=== PATIENT | male | born 1985 | race Two or more races ===

== ENCOUNTER 2024-12-08 23:09 | Emergency (ER) | payer OTHER, SELFPAY ==
[2024-12-08 23:14] VITALS: BP 136/79; PULSE 109; TEMP 36.8; O2SAT 98; BMI 64.6
--- NOTE | 2024-12-08 23:32 | ED_ITS ---
HPI - Abdominal Pain General Chief Complaint: Abdominal Pain Stated Complaint: Abdominal Pain Time Seen by Provider: 12/08/24 23:10 Source: patient Mode of arrival: walk-in Limitations: no limitations History of Present Illness HPI narrative: 39-year-old male presents to the emergency department for abdominal pain. He is complaining pain on the right side of his abdomen which started about 48 hours ago. It seems to come and go. No trauma vomiting or diarrhea or constipation. The pain sometimes is severe but then goes away. He has never had a kidney stone. He had gastric bypass surgery about 22 years ago and no other abdominal surgeries. Related Data Home Medications ?Medication ?Instructions ?Recorded ?Confirmed No Known Home Medications 12/08/24 12/08/24 Allergies Allergy/AdvReac Type Severity Reaction Status Date / Time No Known Drug Allergies Allergy Verified 12/08/24 23:19 Review of Systems ROS Narrative A ten point review of systems is negative except as noted above. [facility] History (Updated 12/09/24 @ 02:02 by Corky Gotti MD) Fracture, foot ?S92.909A - Unspecified fracture of unspecified foot, initial encounter for closed fracture (ICD-10) Surgical History (Updated 12/08/24 @ 23:19 by Nisha Lambert) Gastric bypass status for obesity ?Z98.84 - Bariatric surgery status (ICD-10) Social History Little interest or pleasure in doing things: not at all Feeling down, depressed, or hopeless: not at all Exam Narrative Exam Narrative: Nurses note and vital signs reviewed and patient is not hypoxic. General: The patient appears in no apparent distress. Patient is resting comfortably on cart. Skin: Warm, dry, no pallor noted. There is no rash noted. Head: Normocephalic, atraumatic Eye: Normal conjunctiva, no drainage Ears, Nose, Mouth, and Throat: oral mucosa is moist. Nares patent. Cardiovascular: Regular Rate and Rhythm Respiratory: Patient is in no distress, no accessory muscle use, lungs are clear to auscultation, no wheezing, rales or rhonchi GI: Morbidly obese, nondistended Musculoskeletal: The patient has no evidence of calf tenderness, no pitting edema, symmetrical pulses noted bilaterally Neurological: A&O, normal speech Psychiatric: Cooperative Constitutional Vital Signs, click to edit/add: Last Vital Signs Temp 98.3 F 12/08/24 23:14 Pulse 109 H 12/09/24 01:46 Resp 16 12/09/24 01:46 BP 120/84 12/09/24 01:46 Pulse Ox 100 12/09/24 01:46 O2 Del Method Room Air 12/09/24 01:46 Course Vital Signs Vital signs: Vital Signs Temperature 98.3 F 12/08/24 23:14 Pulse Rate 109 H 12/08/24 23:14 Respiratory Rate 18 12/08/24 23:14 Blood Pressure 136/79 12/08/24 23:14 Pulse Oximetry 98 12/08/24 23:14 Oxygen Delivery Method Room Air 12/08/24 23:14 Temperature 98.3 F 12/08/24 23:14 Pulse Rate 109 H 12/09/24 01:46 Respiratory Rate 16 12/09/24 01:46 Blood Pressure 120/84 12/09/24 01:46 Pulse Oximetry 100 12/09/24 01:46 Oxygen Delivery Method Room Air 12/09/24 01:46 MDM - Abdominal Pain MDM Narrative Medical decision making narrative: CAT scan shows acute appendicitis and we are making plans to have the patient transferred to appropriate facility. He is hemodynamically stable and agreeable for transfer. Treatment diagnosis and disposition were discussed with the patient. Differential Diagnosis Differential diagnosis: Likely abdominal pain, acute appendicitis, calculus of kidney, constipation, diverticulitis, gastroenteritis and small bowel obstruction Lab Data Attestation: I reviewed the patient's lab results. Labs: Lab Results 12/09/24 12/09/24 Range/Units 00:05 00:15 WBC 5.7 (4.0-11.0) 10^3/uL RBC 5.11 (4.70-6.10) 10^6/uL Hgb 15.7 (14.0-18.0) g/dL Hct 47.6 (42.0-54.0) % MCV 93.2 (80.0-94.0) fL MCH 30.7 (25.9-34.0) pg MCHC 33.0 (29.9-35.2) g/dL RDW 12.8 (11.0-15.0) % Plt Count 244 (150-450) 10^3/uL MPV 9.4 L (9.5-13.5) fL Seg Neuts % (Manual) 82.0 H (43.0-75.0) Lymphocytes % (Manual) 11.0 L (20.5-60.0) % Monocytes % (Manual) 6.0 (1.7-12.0) % Eosinophils % (Manual) 1.0 (0.9-7.0) % Basophils % (Manual) 0.0 L (0.2-2.0) % Neutrophils # (Manual) 4.67 (1.4-6.5) 10^3/uL Lymphocytes # (Manual) 0.62 L (1.20-3.80) 10^3/uL Monocytes # (Manual) 0.34 (0.30-0.80) 10^3/uL Eosinophils # (Manual) 0.05 (0.00-0.70) 10^3/uL Basophils # (Manual) 0.00 (0.00-0.10) 10^3/uL Sodium 134 L (136-145) mmol/L Potassium 4.4 (3.5-5.1) mmol/L Chloride 97 L (98-107) mmol/L Carbon Dioxide 26.2 (21.0-32.0) mmol/L Anion Gap 15.2 BUN 11.0 (7.0-18.0) mg/dL Creatinine 1.26 (0.70-1.30) mg/dL Est GFR ( Amer) >60 (>=60 mL/min/1.73m^2) Est GFR (Non-Af Amer) >60 (>=60 mL/min/1.73m^2) BUN/Creatinine Ratio 8.7 Glucose 142 H (74-106) mg/dL Calcium 9.0 (8.5-10.1) mg/dL Urine Color Dk. orange (YELLOW) Urine Clarity Sl cloudy (CLEAR) Urine pH Color interference A (5.0-9.0) Ur Specific [place] 1.025 (1.005-1.025) Urine Protein Color interference A (NEG/TRACE) mg/dL Urine Glucose (UA) Color interference A (NEGATIVE) mg/dL Urine Ketones Color interference A (NEGATIVE) mg/dL Urine Occult Blood Color interference A (NEGATIVE) Urine Nitrite Color interference A (NEGATIVE) Urine Bilirubin Color interference A (NEGATIVE) Urine Urobilinogen Color interference A (0.2-1.0) EU/dL Ur Leukocyte Esterase Color interference A (NEGATIVE) Urine RBC 0-2 (0-2) #/HPF Urine WBC 2-5 A (NONE SEEN) #/HPF Ur Squamous Epith Cells Rare (NONE/RARE) #/LPF Urine Crystals None seen (None Seen) #/HPF Urine Bacteria Trace A (NONE SEEN) #/HPF Urine Casts Seen A (NONE SEEN) #/LPF Hyaline Casts Moderate Fine Granular Casts Few Urine Mucus Large A (NONE SEEN) Discharge Plan Discharge Chief Complaint: Abdominal Pain Clinical Impression: Acute appendicitis Patient Disposition: [facility] Time of Disposition Decision: 02:02 Condition: Good Mode of Transportation: EMS
[2024-12-09] MEDS: KETOROLAC TROMETHAMINE 30 MG/ML VIAL IVP (00:09)
[2024-12-09 00:14] LABS: Hematocrit 47.6 % (42.0-54.0); Hemoglobin 15.7 g/dL (14.0-18.0); Mean Corpuscular Hemoglobin 30.7 pg (25.9-34.0); Mean Corpuscular Volume 93.2 fL (80.0-94.0); Mean Platelet Volume 9.4 fL (9.5-13.5); Platelet Count 244 10^3/uL (150-450); Red Blood Count 5.11 10^6/uL (4.70-6.10); Red Cell Distribution Width 12.8 % (11.0-15.0); White Blood Count 5.7 10^3/uL (4.0-11.0)
[2024-12-09 00:22] LABS: Anion Gap 15.2; BUN Creatinine Ratio 8.7; Carbon Dioxide 26.2 mmol/L (21.0-32.0); Chloride 97 mmol/L (98-107); Estimated GFR (African America >60 (>=60 mL/min/1.73m^2); Estimated GFR (Non-African Ame >60 (>=60 mL/min/1.73m^2); Glucose 142 mg/dL (74-106); Potassium 4.4 mmol/L (3.5-5.1); Sodium 134 mmol/L (136-145)
[2024-12-09 00:26] LABS: Clarity Urine SL CLOUDY (CLEAR); Color Urine DK. ORANGE (YELLOW); Specific Gravity Urine 1.025 (1.005-1.025)
[2024-12-09 00:32] LABS: Bilirubin Urine COLOR INTERFERENCE (NEGATIVE); Glucose Urine UA COLOR INTERFERENCE mg/dL (NEGATIVE); Ketones Urine COLOR INTERFERENCE mg/dL (NEGATIVE); Protein Urine COLOR INTERFERENCE mg/dL (NEG/TRACE); Urobilinogen Urine COLOR INTERFERENCE EU/dL (0.2-1.0); pH Urine COLOR INTERFERENCE (5.0-9.0)
[2024-12-09 00:33] LABS: Blood Urine COLOR INTERFERENCE (NEGATIVE); Leukocyte Esterase Urine COLOR INTERFERENCE (NEGATIVE); Nitrite Urine COLOR INTERFERENCE (NEGATIVE)
[2024-12-09 00:33] LABS: Eosinophils Absolute Manual 0.05 10^3/uL (0.00-0.70); Lymphocytes Absolute Manual 0.62 10^3/uL (1.20-3.80); Monocytes Absolute Manual 0.34 10^3/uL (0.30-0.80); Segmented Neut Absolute Manual 4.67 10^3/uL (1.4-6.5)
[2024-12-09 00:36] LABS: Bacteria Urine TRACE #/HPF (NONE SEEN); Mucus Urine LARGE (NONE SEEN); RBC Urine 0-2 #/HPF (0-2)
[2024-12-09 00:38] LABS: Cast Seen? SEEN #/LPF (NONE SEEN); Crystals Seen? None Seen #/HPF (None Seen); Fine Granular Casts Urine FEW; Hyaline Casts Urine MODERATE; Squamous Epithelial Cell Urine RARE #/LPF (NONE/RARE)
--- NOTE | 2024-12-09 00:51 | CT_ITS ---
The [address] [address] Patient Name: BLANCA JOHNSON MRN: [id number] date: 1985 Sex: M Assigned Patient Location: ER Current Patient Location: .MAIN Accession/Order Number: [id number] Exam Date: 12/09/2024 01:08 Report Date: 12/09/2024 02:02 At the request of: PEPE ISBELL Procedure: CT abdomen pelvis w con CT OF THE ABDOMEN AND PELVIS WITH CONTRAST: 12/09/2024 1:08 AM EST CLINICAL HISTORY: Right-sided abdominal pain. COMPARISONS: None. TECHNIQUE: Thin section axial CT images were obtained from the lung bases to the pubis symphysis. This CT exam was performed using one or more of the following dose reduction techniques: Automated exposure control, adjustment of the mA and/or kV according to patient size, or use of iterative reconstruction technique. Thin section coronal and sagittal images were reconstructed from the axial data set. All images were reviewed and interpreted. CONTRAST: Intravenous contrast was administered. Type and amount is documented at the local institution. FINDINGS: LUNG BASES: No consolidation or pleural fluid. LIVER: Hepatic steatosis. Otherwise negative. GALLBLADDER: Multiple small dependent calcified gallstones. No CT evidence of cholecystitis. BILIARY TREE: No ductal dilatation. PANCREAS: Normal. SPLEEN: Normal. ADRENALS: Normal. KIDNEYS: Normal, without urolithiasis or hydronephrosis. URINARY BLADDER: Grossly unremarkable. PELVIC STRUCTURES: Unremarkable. BOWEL: GE junction is normal. Gastric bypass surgery likely for weight loss. Correlate with history. No gastric distention. There are multiple loops of small bowel in the left lower quadrant and lower mid abdomen demonstrates some uniform thickening and enhancement and fluid but are nondistended. Underlying distal enteritis. This may be secondary to appendicitis. Follow-up. There is some gaseous prominence of large bowel and transverse colon. Ileus likely due to inflammatory changes. No colonic wall thickening. No colitis. There is no significant diverticulosis. There is no evidence of diverticulitis. APPENDIX: Abnormal appearance of the appendix with dilated fluid-filled appendix extensive periappendiceal fat stranding and stranding right lower quadrant distal to the cecal tip in region of appendix. There is some air in the more proximal appendix with fluid in the distal appendix with wall thickening and enhancement. Uncertain if there is localized perforation or there is air still within the appendix lumen of cecum. No abscess at this time. LYMPH NODES: No pathologically enlarged lymph nodes identified. PERITONEUM: No intraperitoneal free air. There is trace reactive free fluid within the dependent midline pelvis. No loculated fluid or abscess. No free air in the upper abdomen. MESENTERY: Unremarkable. RETROPERITONEUM: The retroperitoneum is unremarkable. AORTA: Normal in caliber. BODY WALL: No body wall mass. OSSEOUS STRUCTURES: No destructive osseous lesion or displaced fracture. CT/CT abdomen pelvis w con IMPRESSION: 1. Acute appendicitis as discussed. Recommend surgical assessment. 2. Additional acute enteritis involving multiple lower abdominal and pelvic small bowel loops without obstruction. 3. Mild large bowel ileus of transverse colon. 4. Trace reactive simple ascites midline dependent pelvis. Needle region. 5. Cholelithiasis. 6. Prior gastric bypass. Critical results were NOTIFIED by TELEPHONE BY Dr. Catracho Ramirez, DO to Physician: Pepe Isbell At 12/09/2024 1:56 AM EST. Electronically authenticated by: CATRACHO RAMIREZ Date: 12/09/2024 02:02
[2024-12-09 01:46] VITALS: BP 120/84; PULSE 109; O2SAT 100
[2024-12-09] MEDS: MORPHINE SULFATE 4 MG/ML VIAL IV ×2 (03:20→08:39)
[2024-12-09 04:00] VITALS: BP 102/63; PULSE 109; O2SAT 96
[2024-12-09 06:25] VITALS: BP 126/84; PULSE 112; TEMP 37.8; O2SAT 96
== END 2024-12-09 08:48 | disposition short-term general hospital (02) ==
PROVIDERS: Emergency Provider Emergency Medicine; PCP Family Medicine
DX: K35.80 Unspecified acute appendicitis (principal); E66.01 Morbid (severe) obesity due to excess calories; Z68.44 Body mass index [BMI] 60.0-69.9, adult; K52.9 Noninfective gastroenteritis and colitis, unspecified; K80.20 Calculus of gallbladder without cholecystitis without obstruction
CPT/HCPCS: 36415; 74177; 80048; 81001; 85007; 85027; 96374; 96375; 96376; 99285; J1885; J2270; J2543; Q9967